=== PATIENT | female | born 1935 | race Caucasian/White ===

== ENCOUNTER 2017-02-24 23:44 | Observation (INO) | payer MEDICARE, BC ==
[~2017-02-24] VITALS: Ht 163 cm; Wt 56.9 kg
--- NOTE | ~2017-02-24 | CN ---
Consultation Report [facility] [address] [place]. [address] NAME: SOPHY KHANNA : 33 STATUS : ADM Ritu PAT#: [id number] AGE: 81 ADM/REG DATE : 02/25/17 MR#: [id number] REPORT SERV DATE: 02/26/17 DICTATED BY: CAMRYN ALFARO DATE: 02/25/17 REPORT STATUS : Draft TRANSCRIBED BY: GEM DATE: 02/25/17 NEUROLOGICAL CONSULTATION EVALUATION DATE OF CONSULTATION: 02/25/2017 HISTORY OF PRESENT ILLNESS: This is a pleasant 81-year-old female with history of hypertension, who was admitted through the emergency room with history of an acute episode of dizziness, which occurred prior to admission. The patient was coming out of the local theatre with her friends and she was noted to have some unsteadiness of her gait. The patient stated that she felt unsteady, although did not remember having any sensation of being pulled to one side. The patient denied chest pain, shortness of breath, her heart beating irregularly. The patient denied history of seizures, prior history of syncope. There is no history of stroke or TIA in the past. The patient stated that she felt she was going to faint, felt lightheaded. She actually had fallen and hit her back of her head on concrete, the impact was not severe. The patient did not lose consciousness after falling. Last year the patient was diagnosed with peripheral neuropathy of an unknown cause. The patient does not have diabetes mellitus. PAST MEDICAL HISTORY: Significant history of ulcerative colitis, history of colonoscopy. PAST SURGICAL HISTORY: Hysterectomy, cholecystectomy, hand surgery, femur fracture, ankle surgery. ALLERGIES: MULTIPLE ALLERGIES. THE PATIENT IS ALLERGIC TO PENICILLIN, SULFA, DOXYCYCLINE, CELEXA, AND FISH WHICH SHE STATED ONLY CRAMPS AND CAUSE A REACTION. OTHERWISE, THE PATIENT HAS NO DIFFICULTY EATING SEAFOOD. SOCIAL HISTORY: There is no history of smoking. She drinks once a month, one glass of wine. FAMILY HISTORY: Significant history of heart disease and stroke in the patient's mother, at age of 82. The patient's father had history of lung cancer. MEDICATIONS: Home medications included multivitamins, vitamin B complex, atenolol 25 mg p.o. daily, gabapentin 600 mg at bedtime, Floxin 3 mg daily, and Mentax 1 mg per day. REVIEW OF SYSTEMS: Review of systems was essentially negative except for what was stated in history of present illness. The patient denied recent changes of eating habits or weight loss. The patient has had ulcerative colitis with frequent checkups. No recent exacerbations. The patient denied having weakness or numbness involving her face or extremities. Denied difficulty with her speech, chewing, or swallowing. Denied difficulty with her and GI system. Has not had any problems with her digestion and has had some intermittent swelling in her legs, but none recently. The patient's weight has been stable. The rest of 14-point of review of system was negative. Consultation Report [facility] [address] [place]. [address] NAME: SOPHY KHANNA : 33 STATUS : ADM Ritu PAT#: [id number] AGE: 81 ADM/REG DATE : 02/25/17 MR#: [id number] REPORT SERV DATE: 02/26/17 DICTATED BY: CAMRYN ALFARO DATE: 02/25/17 REPORT STATUS : Draft TRANSCRIBED BY: GEM DATE: 02/25/17 PHYSICAL EXAMINATION: VITAL SIGNS: Blood pressure ranging between 160 to 180 systolic, pulse was 56 and fluctuating between normal sinus rhythm of 67 and 56, and temperatures were 98.3 and 97.3 today. HEAD AND NECK: Showed head to be normocephalic. There was no evidence of trauma. Auscultation of the neck showed no evidence of bruits. Eye exam sclerae were not icteric. Conjunctivae pink. ENT exam unremarkable. Tongue was midline. No atrophy or fibrillations were noted. There is no glossitis. Neck was supple. There was no Kernig or Brudzinski. Cervical range of motion was not impaired. CHEST: Symmetrical. LUNGS: Clear to auscultation. HEART: Regular S1 and S2. No S3, S4, gallops were noted. ABDOMEN: Soft, nontender. EXTREMITIES: Show no clubbing or cyanosis. There is no peripheral edema. Peripheral pulses were normal. SKIN: Clear. NEUROLOGICAL EXAM: MENTAL STATUS EXAM: The patient's mental status except for patient being hard of hearing was entirely normal. She was alert and oriented to self, time, and place. Had good insight and judgment. Appeared to have no difficulty with her distant or recent memory. Speech was fluent. There was no evidence of aphasia or dysarthria. CRANIAL NERVE EXAMINATION: 2 through 12, visual germain on confrontation were intact. Funduscopic exam showed no evidence of papilledema, hemorrhages, AV nicking, or arterial narrowing was present. Pupils were 2.5 mm reacted to light and accommodation. No asymmetry. No facial asymmetry was noted. Hearing was decreased bilaterally, which as per patient is chronic, the patient uses hearing aids. Lower cranial nerves were intact. Tongue was midline. No atrophy or fibrillations were noted. Palate elevated symmetrically. Sternocleidomastoid and trapezius muscles were normal and symmetrical. MOTOR EXAM: Muscle bulk and tone were normal. Strength was 5/5 throughout. Deep tendon reflexes were 1+/2. Ankle jerks were absent. Babinski signs were not elicitable. SENSORY EXAM: Showed decreased sensation to pinprick, light touch, vibration, and to lesser degree position sense distally in both lower extremities. No asymmetry was present. CEREBELLAR EXAM: Luigdt-mj-sfha, apbx-ql-xrri, and rapid alternating movements show no evidence of asymmetry or weakness and gait was within normal range. As per the patient, improved since admission. LABORATORY STUDIES: Sodium 136, potassium 3.7, chloride 100, BUN 12, creatinine 0.72, GFR 90, glucose 105, calcium 8.9, magnesium 1.9. WBC count 6.5, hemoglobin 12.3, hematocrit 36.6, platelet count 277,000. Troponin less than 0.02. CPK 114. CPK-MB fraction 2.2. The patient's MRI of the brain show evidence of mild old ischemic changes in periventricular area and no evidence of acute stroke, inflammation, and possible mastoiditis seen on the left. There was no fluid collection. Consultation Report [place] [id number] [facility] [place]. [address] NAME: SOPHY KHANNA : 33 STATUS : ADM Ritu PAT#: [id number] AGE: 81 ADM/REG DATE : 02/25/17 MR#: [id number] REPORT SERV DATE: 02/26/17 DICTATED BY: CAMRYN ALFARO DATE: 02/25/17 REPORT STATUS : Draft TRANSCRIBED BY: MODL DATE: 02/25/17 IMPRESSION: Episode of near syncope as stated with dizziness and could not rule out or exclude the transient ischemic attack. The patient's MRA of the neck showed possible left subclavian artery stenosis. On the examination, the patient's pulses in both arms are equal and no evidence of abnormality was noted on examination. I doubt this contributed to the patient's symptoms, although subclavian steal syndrome can cause dizziness or near-syncope. History of peripheral neuropathy of unknown origin, would concentrate on ruling out possible vitamin B12 deficiency. The patient takes p.o. vitamins; however, question is whether she is absorbing the medications or vitamins she takes. Would recommend to continue workup on outpatient basis. We will get the patient's vitamin B12 level tested and folate will be tested also. The patient was asked to follow with her primary physician. No driving when dizzy or drowsy. Recommend to take one baby aspirin 81 mg p.o. daily. The patient's lipid panel shows LDL of 70, probably within normal range for stroke prevention. However, it was discussed with the patient and recommendation for the patient with TIA and possible stroke. She is to stay on statins. Stroke education booklet and stroke education were given to the patient. Recommend for ENT followup if the patient's symptoms persist. Antibiotics treatment if needed. At present, the patient is feeling better. Recommend an outpatient followup. Vascular consult on outpatient basis to monitor subclavian narrowing on the left. Thank you for allowing me to participate in this patient's care. WILLA/GEM Camryn Alfaro MD / [id number] CC: Jolynn Jo David K
--- NOTE | ~2017-02-24 | CN ---
Consultation Report [facility] [address] [place]. [address] NAME: SOPHY KHANNA : 33 STATUS : ADM Ritu PAT#: [id number] AGE: 81 ADM/REG DATE : 02/25/17 MR#: [id number] REPORT SERV DATE: 02/26/17 DICTATED BY: COLLIN DANIEL DATE: 02/26/17 REPORT STATUS : Draft TRANSCRIBED BY: MODL DATE: 02/26/17 INPATIENT CONSULTATION DATE OF CONSULTATION: 02/26/2017 SERVICE: Otolaryngology. ATTENDING PHYSICIAN OF RECORD: Collin Daniel MD. REFERRING DIAGNOSIS: Dizziness and mastoiditis. HISTORY OF PRESENT ILLNESS: This is an 81-year-old female, who the night before last, became very dizzy and actually did fall and injured her head. She went to the emergency room for evaluation. At that time, they did an initial CT scan and did not find any acute injury secondary to fall but then started a stroke workup. During that workup, CT and MRI were obtained. The MRI showed some inflammation of the left maxillary sinus and mastoid cavity. I was referred for evaluation. The patient has been initially treated with azithromycin by the admitting physician. She is currently pain-free, tolerating a diet, and awaiting my consultation for disposition. PAST MEDICAL HISTORY: Includes ulcerative colitis and peripheral neuropathy. PAST SURGICAL HISTORY: Includes hysterectomy, cholecystectomy, ankle surgery, hand surgery, and a history of femur fracture. ALLERGIES: SHE IS ALLERGIC TO PENICILLIN, SULFA DRUGS, DOXYCYCLINE, CELEXA, AND FISH. SOCIAL HISTORY: She denies use of tobacco, rare occasional alcohol use, and no drug use. IMAGING: MRI that was performed on the , that I reviewed personally, did show inflammation but not obstruction of the left maxillary and ethmoid sinuses. There was also inflammation present in the left mastoid cavity. The corresponding CT was also reviewed. There was no coalescent mastoiditis. No evidence of abscess formation in either place. PHYSICAL EXAMINATION: GENERAL: On physical exam, the patient was awake, alert, in no acute distress. Her daughter was at the bedside. She had a pleasant affect. HEENT: There are no facial deformities. The ear canals and the tympanic membranes are healthy in appearance bilaterally. No external nasal deformities internally. Septum and turbinates are normal in appearance. Evaluation of the throat revealed normal buccal mucosa. Good dentition. No lesions on the floor of mouth or oral tongue. The oropharynx was soft and symmetric and pink. No evidence of infection. Palpation of the face revealed some tenderness of the left mastoid tip and the left sternocleidomastoid muscle. There was no abnormal cervical lymphadenopathy present. The thyroid gland was nontender. Consultation Report [address] [place]. [address] NAME: SOPHY KHANNA : 33 STATUS : ADM Ritu PAT#: [id number] AGE: 81 ADM/REG DATE : 02/25/17 MR#: [id number] REPORT SERV DATE: 02/26/17 DICTATED BY: COLLIN DANIEL DATE: 02/26/17 REPORT STATUS : Draft TRANSCRIBED BY: GEM DATE: 02/26/17 IMPRESSION: Disequilibrium secondary to inflammation of the left maxillary ethmoid sinus and left mastoid cavity. Given the patient's allergies, I am recommending seven-day course of clindamycin. I do believe she can be treated outpatient at this point if there are no other medical conditions keeping her in the hospital. I gave the patient's daughter my clinic information, and they will follow up with me again in 1 week. I have left the prescription for the Levaquin on the chart. From an ENT standpoint, no further in-hospital treatment is required at this time. Thank you for the consult. If there are any questions, please do not hesitate to call any time [phone]. PS/GEM Collin Daniel MD / [id number] CC: Jolynn Jo M.D.
--- NOTE | ~2017-02-24 | HP ---
History And Physical [facility] [address] [facility] [place]. [address] NAME: SOPHY KHANNA : 33 STATUS : ADM Ritu PAT#: [id number] AGE: 81 ADM/REG DATE : 02/25/17 MR#: [id number] REPORT SERV DATE: 02/25/17 DICTATED BY: ANNIE VELASQUEZ DATE: 02/25/17 REPORT STATUS : Draft TRANSCRIBED BY: MODL DATE: 02/25/17 DATE OF ADMISSION: 02/24/2017 CHIEF COMPLAINT: Dizziness. HISTORY OF PRESENT ILLNESS: The patient is an 81-year-old white female who was walking out of a theatre with a friend bunny when she fell off balance. She then had a dizzy spell. She felt like she is going to passed out; however, she did not. Symptoms have persisted, but have nearly gone at this time. She does have a history of peripheral neuropathy. She did stumble and fall, and break her hip last year when she was visiting her spouse at [facility]. When the emergency room doctor walked her she was slightly off balance so she is being admitted for a possible TIA. PAST MEDICAL HISTORY: Significant for ulcerative colitis. She has a colonoscopy yearly and peripheral neuropathy. PAST SURGICAL HISTORY: She had a hysterectomy, cholecystectomy, ankle surgery, hand surgery. She has had a femur fracture. ALLERGIES: SHE IS ALLERGIC TO PENICILLIN, SULFA, DOXYCYCLINE, CELEXA, AND FISH ALL CAUSE A RASH. SOCIAL HISTORY: She does not smoke. Drinks rarely. Lives by herself. She is a full code. FAMILY HISTORY: Mom at age 82 of heart problems. Dad at age 72 of lung cancer. HOME MEDICATIONS: 1. Floxin 20 mg daily. 2. Mentax one daily. 3. Mag oxide 400 mg b.i.d. 4. Atenolol 25 mg daily. 5. Gabapentin 600 mg q.h.s. 6. Pentasa 1000 mg t.i.d. 7. Multivitamin one daily. 8. B vitamin complex daily. REVIEW OF SYSTEMS: CONSTITUTIONAL: No fever, sweats, or rigors. EYES: No blurred or double vision, vision loss, or glaucoma. HENT: No headache, hearing loss, or tinnitus. CARDIOVASCULAR: No chest pain or palpitations. There is near syncope. No edema, dyspnea on exertion. RESPIRATORY: No cough, wheezing, or pleuritic pain. GASTROINTESTINAL: No nausea, vomiting, hematemesis, or abdominal pain. MUSCULOSKELETAL: Denies arthralgia or arthritis. INTEGUMENT: No rash or suspicious skin lesions. History And Physical [address] [place]. [address] NAME: SOPHY KHANNA : 33 STATUS : ADM Ritu PAT#: [id number] AGE: 81 ADM/REG DATE : 02/25/17 MR#: [id number] REPORT SERV DATE: 02/25/17 DICTATED BY: ANNIE VELASQUEZ DATE: 02/25/17 REPORT STATUS : Draft TRANSCRIBED BY: GEM DATE: 02/25/17 NEUROLOGIC: No memory loss. There has been some gait disturbance. No weakness. Possibly TIA symptoms. There is some peripheral neuropathy. HEMATOLOGIC: No anemia, iron deficiency, or B12 deficiency. PSYCHIATRIC: No depression, bipolar, or anxiety. : No dysuria, hematuria, or nephrolithiasis. ENDOCRINE: No diabetes. Cholesterol is unknown. PHYSICAL EXAMINATION: VITAL SIGNS: Blood pressure is 182/78, temp 90.3, pulse 69, respiration 18, O2 saturation 98% on room air. CONSTITUTIONAL: Alert and appropriate. PSYCHIATRIC: Alert and oriented x3. Memory intact. Affect appropriate. HEENT: Atraumatic and normocephalic. Oral palate without lesion. EYES: Pupils reactive, and anicteric. NECK: No adenopathy. Supple. No thyromegaly or masses. RESPIRATORY: Clear to auscultation. CARDIOVASCULAR: Regular rate and rhythm. No murmurs. No carotid or femoral bruits. Distal pulse intact. ABDOMEN: Soft and nontender. No masses. SKIN: No rash or suspicious lesions. NEUROLOGIC: Cranial nerves 2 through 12 intact. Deep tendon reflexes symmetric. LYMPHATIC: No adenopathy in the neck, axilla, or femoral region. MUSCULOSKELETAL: Range of motion intact to upper and lower extremities. DATA: Head CT unremarkable. EKG: Normal sinus rhythm, no acute changes. Magnesium 1.9, sodium 136, potassium 3.7, BUN 12, creatinine 0.72, and glucose 105. Hemoglobin 12.3, platelet 277, and white count 6.5. IMPRESSION/PLAN: 1. Possible transient ischemic attack. We will initiate transient ischemic attack order set and workup. 2. Hypertension. 3. Ulcerative colitis, appears controlled. NGM/GEM Annie Velasquez MD / [id number] History And Physical [address] [place] [address] NAME: SOPHY KHANNA : 33 STATUS : ADM Ritu PAT#: [id number] AGE: 81 ADM/REG DATE : 02/25/17 MR#: [id number] REPORT SERV DATE: 02/25/17 DICTATED BY: ANNIE VELASQUEZ DATE: 02/25/17 REPORT STATUS : Draft TRANSCRIBED BY: GEM DATE: 02/25/17 CC: Mart Nunez M.D.
--- NOTE | ~2017-02-24 | DS ---
Discharge Summary [place] [address] [place]. [address] NAME: SOPHY KHANNA : 33 STATUS : DIS Ritu PAT#: [id number] AGE: 81 ADM/REG DATE : 02/25/17 MR#: [id number] REPORT SERV DATE: 02/27/17 DICTATED BY: JANY ALAN DATE: 02/26/17 REPORT STATUS : Draft TRANSCRIBED BY: GEM DATE: 02/26/17 ADMISSION DATE: 02/25/2017 DISCHARGE DATE: 02/26/2017 DIAGNOSES: 1. Presyncope secondary to possible disequilibrium secondary to her sinusitis and possible transient ischemic attack. 2. Sinusitis with left mastoid inflammation. 3. Possible transient ischemic attack. 4. Hypertension. CONSULTANTS: Neurology, Dr. Alfaro and ENT, Dr. Patterson. FOLLOWUP: The patient should follow up with Dr. Patterson in one week and to follow up with her primary care physician within one week. The patient has been for informed to move slowly with changing positions. DISCHARGE MEDICATIONS: Enteric-coated aspirin 81 mg p.o. daily, atenolol 25 mg p.o. daily per home dose, multivitamin p.o. daily, cholecalciferol p.o. daily, coenzyme Q10 of 200 mg p.o. daily, Prozac 20 mg p.o. daily, Flonase one spray in each nostril b.i.d. for seven days, Metanx one tab p.o. daily, Neurontin 600 mg p.o. daily, magnesium oxide 400 mg p.o. b.i.d., Pentasa CR 1000 mg p.o. t.i.d., omega-3 fatty acid 1000 mg p.o. daily, Levaquin 500 mg p.o. daily for seven days per Dr. Patterson, and Florastor one tab p.o. b.i.d. with . IMAGING: CT of the brain without contrast showing no acute intracranial hemorrhage nor other intracranial pathology. There is a right occipital scalp hematoma. No underlying cranial fracture. 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 MRI/MRA of the brain and neck showing no evidence of acute intracranial abnormality. There are some paranasal sinus and left mastoid inflammatory disease. Negative MRA of the [place] region. Negative MRA of the neck per Dr. Pan. Echocardiogram with ejection fraction of 55%. HOSPITAL COURSE: Please see H and P dictated by Dr. Annie Martinez. This is an 81-year-old female with a past medical history of UC, was walking out of a theater with a friend and felt imbalanced and then had a dizzy spell and felt as though she was going to pass out. The patient did stumble and experienced a fall and presented to the emergency department and was admitted under observation for TIA work up. She had a CT of the brain as mentioned above. The patient did have on exam of the CT small occipital scalp hematoma from her fall and also was seen by Neurology and had a MRI that ruled out CVA, but was recommended by neurologist, Dr. Alfaro to continue with a baby aspirin to rule out TIA; however, it was suspected also the patient may have some underlying sinusitis which was seen on imaging and was seen by ENT for left mastoid inflammation and recommended by Dr. Patterson, ENT, to Discharge Summary [address] [address] NAME: SOPHY KHANNA : 33 STATUS : DIS Ritu PAT#: [id number] AGE: 81 ADM/REG DATE : 02/25/17 MR#: [id number] REPORT SERV DATE: 02/27/17 DICTATED BY: JANY ALAN DATE: 02/26/17 REPORT STATUS : Draft TRANSCRIBED BY: GEM DATE: 02/26/17 continue with Levaquin for seven days at 500 mg p.o. daily and to follow up in with him in one week. Suspect also the patient was having some disequilibrium secondary to her sinusitis, but the patient did not have any recurrence of symptoms and recommend to follow up in clinic as an outpatient. Also, important to note, the patient's lipid panel was within normal limits with a total cholesterol of 180, HDL of 99, LDL of 70, triglyceride of 59. Also, the patient was recommended to follow up as an outpatient in her primary care office clinic for folate and B12 management and as an outpatient. Although the patient was found to have normal folate level of 69.9 and 45.8 and also B12 level of 4405 which was not causing any issues per labs. However, the patient continued to be followed as an outpatient. The patient did not have any telemetry alerts for hospital course and was discharged to home in stable condition to follow up as an outpatient. HELEN/GEM Jany Alan M.D. / [id number] CC: Jolynn Jo DAVID K
[~2017-02-24 23:44] MED LIST: ALLEGRA180 PO; ATEN25 PO; BALSALAZIDE750 MG PO; CO Q-10200 MG PO; D.O.S.100 MG PO; DIOV160 PO; DIOVAN HC1 PO; FISH-EPA1000 MG PO; MAGOX4 PO; MULTIPLE VIT PO; MULTIVIT/MIN PO; NEUR100 PO; PENTASA500 MG PO; PEP20 PO; PRILO PO; VITAMIN B PO; VITAMIN B12 OTC PO; VITAMIN D31000 UNIT PO; XALAT OPH
[2017-02-25 01:26] LABS: BASOPHILS 0.3 %; BASOPHILS ABSOLUTE 0.02 10/3/uL (0.0-0.16); EOSINOPHILS ABSOLUTE 0.39 10/3/uL (0.0-0.53); ER CBC TAT 0 Hrs 13 Mins; HEMATOCRIT 36.6 % (36.0-48.0); HEMOGLOBIN 12.3 g/dL (12.0-16.0); IMMATURE GRANULOCYTES 0.2 %; IMMATURE GRANULOCYTES ABSOLUTE 0.01 10/3/uL (0.0-0.11); LYMPHOCYTES 19.4 %; LYMPHOCYTES ABSOLUTE 1.26 10/3/uL (0.67-4.30); MEAN CORPUS HGB CONC 33.6 g/dL (32.0-36.0); MEAN CORPUSCULAR HEMOGLOB 29.2 pg (26.0-34.0); MEAN CORPUSCULAR VOLUME 86.9 fL (80-100); MEAN PLATELET VOLUME 8.6 fL (9.2-13.0); MONOCYTES 9.2 %; NEUTROPHILS 64.9 %; NEUTROPHILS ABSOLUTE 4.21 10/3/uL (2.02-8.40); PLATELET COUNT 277 10/3/uL (150-400); RBC DISTRIBUTION WIDTH 14.1 % (12.0-16.0); RED CELL COUNT 4.21 10/6/uL (4.0-5.6); WHITE BLOOD CELLS 6.5 10/3/uL (4.5-10.5)
[2017-02-25 01:27] LABS: MANUAL DIFF NO %
[2017-02-25 01:35] LABS: PARTIAL THROMBO TIME 29.1 SEC (22.5-37.2); PROTIME (NOT ORD) 13.3 SEC (12.0-14.5)
[2017-02-25 01:42] LABS: BUN (BLOOD UREA NITROGEN) 12 MG/DL (6-23); CALCIUM, SERUM 8.9 MG/DL (8.5-10.4); CHEST PAIN PROFILE TAT 0 Hrs 29 Mins; CHLORIDE, SERUM 100 MMOL/L (96-112); CO2 (CARBON DIOXIDE) 29 MMOL/L (24-34); CREATININE 0.72 MG/DL (0.55-1.02); GFR AFRICAN AMERICAN 90 ML/MIN (>=60); GFR NON AFRICAN AMERICAN 77 ML/MIN (>=60); GLUCOSE, SERUM 105 MG/DL (60-99); POTASSIUM, SERUM 3.7 MMOL/L (3.5-5.3); SODIUM, SERUM 136 MMOL/L (135-148); TROPONIN I <0.02 NG/ML (<0.05)
[2017-02-25 02:05] LABS: ASCORBIC ACID (UR NOT ORDER) NEG (NEG); BILIRUBIN, URINE NEGATIVE (NEG); ER URINALYSIS TAT 0 Hrs 00 Mins; KETONE, URINE NEGATIVE (NEG); NITRITE (URINE) NEG (NEG); WBC (NOT ORDERED) (RFLEX) 2 (0-5)
[2017-02-25 02:07] LABS: LEUKOCYTE ESTERASE(NOT OR TRACE (NEG)
[2017-02-25] MEDS ORDERED: PROZAC PO (02:44)
[2017-02-25] MEDS ORDERED: MAG OXIDE250 MG PO (02:45)
[2017-02-25] MEDS ORDERED: METANX PO (02:45)
[2017-02-25] MEDS ORDERED: NEUR600 PO (02:46)
[2017-02-25] MEDS ORDERED: ATEN25 PO (02:46)
[2017-02-25] MEDS ORDERED: CO Q-10200 MG PO (02:47)
[2017-02-25] MEDS ORDERED: PENTASA500 MG PO (02:47)
[2017-02-25] MEDS ORDERED: MULTIVITAMI1 PO (02:48)
[2017-02-25] MEDS ORDERED: VITAMIN B-121000 MC1 PO (02:48)
[2017-02-25] MEDS ORDERED: FISH-EPA1000 MG PO (02:48)
[2017-02-25] MEDS ORDERED: BALANCED B PO (02:49)
[2017-02-25] MEDS ORDERED: VITAMIN D31000 UNIT PO (02:50)
[2017-02-25 06:46] LABS: PARTIAL THROMBO TIME 29.1 SEC (22.5-37.2); PROTIME (NOT ORD) 13.4 SEC (12.0-14.5)
[2017-02-25 06:54] LABS: CHOL/HDL RATIO(NOT ORDER) 1.8 (0-5)
[2017-02-25 08:50] LABS: CK-MB 2.2 NG/ML; CPK 114 U/L (0-200); TROPONIN I <0.02 NG/ML (<0.05)
[2017-02-25 16:32] LABS: CPK 98 U/L (0-200); TROPONIN I <0.02 NG/ML (<0.05)
[2017-02-25 16:35] LABS: CK-MB 1.5 NG/ML
[2017-02-25 19:18] LABS: FOLATE 69.9 NG/ML (>5.2)
[2017-02-26 06:56] LABS: FOLATE 45.8 NG/ML (>5.2)
[2017-02-26] MEDS ORDERED: HALF81 PO (12:55)
[2017-02-26] MEDS ORDERED: FLORASTOR250 MG PO (12:56)
[2017-02-26] MEDS ORDERED: LEVAQUIN5T PO (12:57)
[2017-02-26] MEDS ORDERED: FLONASE NAS (13:03)
== END 2017-02-26 14:59 | disposition home or self-care (01) ==
LOC: ER 23:44 → 1SO 02-25 03:27
PROVIDERS: Internal Medicine; Specialist
DX: R55 Syncope and collapse (principal); J32.9 Chronic sinusitis, unspecified; I10 Essential (primary) hypertension; G62.9 Polyneuropathy, unspecified; K51.90 Ulcerative colitis, unspecified, without complications; E87.8 Other disorders of electrolyte and fluid balance, not elsewhere classified; Z90.49 Acquired absence of other specified parts of digestive tract; Z90.710 Acquired absence of both cervix and uterus; Z98.890 Other specified postprocedural states; Z79.82 Long term (current) use of aspirin; Z79.899 Other long term (current) drug therapy; Z88.0 Allergy status to penicillin; Z88.2 Allergy status to sulfonamides; Z91.013 Allergy to seafood; Z88.8 Allergy status to other drugs, medicaments and biological substances; Z96.1 Presence of intraocular lens; Z98.41 Cataract extraction status, right eye; Z98.42 Cataract extraction status, left eye
CPT/HCPCS: 70450; 70544; 70548; 70551-52; 71010; 80048; 80061; 81001; 82550; 82553; 82607; 82746; 83036; 83735; 84484; 85025; 85610; 85730; 93005; 93306; 96372; 99285; A9270-GY; A9577; G0378